=== PATIENT | male | born 1950 | race Caucasian/White ===

== ENCOUNTER 2017-05-07 08:00 | Outpatient (CLI) | payer MEDICARE, OTHER | END 2017-05-07 08:01 | disposition home or self-care (01) | LOC: LAB.S 08:00 | PROVIDERS: ATTEND Family Medicine | DX: I82.90 Acute embolism and thrombosis of unspecified vein (principal) | CPT/HCPCS: 85610 ==

== ENCOUNTER 2017-05-17 15:50 | Outpatient (CLI) | payer MEDICARE, OTHER | END 2017-05-17 15:51 | disposition home or self-care (01) | LOC: LAB.F 15:50 | PROVIDERS: ATTEND Family Medicine | DX: I82.90 Acute embolism and thrombosis of unspecified vein (principal) | CPT/HCPCS: 85610 ==

== ENCOUNTER 2017-05-28 09:05 | Outpatient (CLI) | payer MEDICARE, OTHER ==
[2017-05-28 19:28] LABS: ALBUMIN/GLOBULIN RATIO 1.2 (1.0-2.2); BILIRUBIN,TOTAL 1.1 mg/dL (0.2-1.0); BUN - BLOOD UREA NITROGEN 23 mg/dL (6-20); CALCIUM 8.7 mg/dL (8.5-10.3); CARBON DIOXIDE - CO2 30 mmol/L (21-32); CHLORIDE 104 mmol/L (101-111); CHOLESTEROL 188 mg/dL; CREATININE 0.8 mg/dL (0.6-1.2); GFR - MDRD 96 (>89); GLUCOSE 93 mg/dL (70-100); HDL CHOLESTEROL 63 mg/dL; LDL/HDL RATIO 1.8 (<3.6); POTASSIUM 4.5 mmol/L (3.5-5.0); SODIUM 139 mmol/L (135-145); TOTAL PROTEIN 7.5 g/dL (6.7-8.2); TRIGLYCERIDES 69 mg/dL; VLDL CHOLESTEROL 14 mg/dL
== END 2017-05-28 09:06 ==
LOC: LAB.S 09:05
PROVIDERS: ATTEND Family Medicine
DX: Z12.5 Encounter for screening for malignant neoplasm of prostate (principal); I82.90 Acute embolism and thrombosis of unspecified vein; I25.10 Atherosclerotic heart disease of native coronary artery without angina pectoris; E03.9 Hypothyroidism, unspecified; R03.0 Elevated blood-pressure reading, without diagnosis of hypertension; E29.1 Testicular hypofunction
CPT/HCPCS: 36415; 80053; 80061; 82627; 84403; 84443; 85610; G0103; 84153

== ENCOUNTER → 2017-06-11 | Outpatient (CLI) | payer MEDICARE, OTHER | LOC: LAB.S 08:00 | PROVIDERS: ATTEND Family Medicine | DX: I82.90 Acute embolism and thrombosis of unspecified vein (principal) | CPT/HCPCS: 85610 ==

== ENCOUNTER 2017-06-25 08:00 | Outpatient (CLI) | payer MEDICARE, OTHER | END 2017-06-25 08:01 | disposition home or self-care (01) | LOC: LAB.S 08:00 | PROVIDERS: ATTEND Family Medicine | DX: I82.90 Acute embolism and thrombosis of unspecified vein (principal) | CPT/HCPCS: 85610 ==

== ENCOUNTER 2017-07-09 10:41 | Outpatient (CLI) | payer MEDICARE, OTHER | END 2017-07-09 10:42 | disposition home or self-care (01) | LOC: LAB.S 10:41 | PROVIDERS: ATTEND Family Medicine | DX: I82.90 Acute embolism and thrombosis of unspecified vein (principal) | CPT/HCPCS: 85610 ==

== ENCOUNTER 2017-08-10 11:24 | Outpatient (CLI) | payer MEDICARE, OTHER | END 2017-08-10 11:25 | disposition home or self-care (01) | LOC: LAB.F 11:24 | PROVIDERS: ATTEND Family Medicine | DX: I82.90 Acute embolism and thrombosis of unspecified vein (principal) | CPT/HCPCS: 85610 ==

== ENCOUNTER 2017-11-22 09:28 | Outpatient (CLI) | payer MEDICARE, OTHER | END 2017-11-22 09:29 | disposition home or self-care (01) | LOC: LAB.F 09:28 | PROVIDERS: ATTEND Family Medicine | DX: I82.90 Acute embolism and thrombosis of unspecified vein (principal) | CPT/HCPCS: 85610 ==

== ENCOUNTER 2018-01-21 08:00 | Outpatient (CLI) | payer MEDICARE, OTHER | END 2018-01-21 08:01 | disposition home or self-care (01) | LOC: LAB.S 08:00 | PROVIDERS: ATTEND Family Medicine | DX: I82.90 Acute embolism and thrombosis of unspecified vein (principal) | CPT/HCPCS: 85610 ==

== ENCOUNTER 2018-02-11 08:00 | Outpatient (CLI) | payer MEDICARE, OTHER | END 2018-02-11 08:01 | LOC: LAB.S 08:00 | PROVIDERS: ATTEND Family Medicine | DX: I82.90 Acute embolism and thrombosis of unspecified vein (principal) | CPT/HCPCS: 85610 ==

== ENCOUNTER 2018-03-04 08:00 | Outpatient (CLI) | payer MEDICARE, OTHER | END 2018-03-04 08:01 | disposition home or self-care (01) | LOC: LAB.S 08:00 | PROVIDERS: ATTEND Family Medicine | DX: Z12.5 Encounter for screening for malignant neoplasm of prostate (principal); Z95.2 Presence of prosthetic heart valve | CPT/HCPCS: 36415; 85610; G0103; 84153 ==

== ENCOUNTER 2018-04-12 15:27 | Outpatient (CLI) | payer MEDICARE, OTHER | END 2018-04-12 15:28 | disposition home or self-care (01) | LOC: LAB.F 15:27 | PROVIDERS: ATTEND Family Medicine | DX: I82.90 Acute embolism and thrombosis of unspecified vein (principal) | CPT/HCPCS: 85610 ==

== ENCOUNTER 2018-05-17 08:00 | Outpatient (CLI) | payer MEDICARE, OTHER | END 2018-05-17 08:01 | disposition home or self-care (01) | LOC: LAB.F 08:00 | PROVIDERS: ATTEND Family Medicine | DX: I82.90 Acute embolism and thrombosis of unspecified vein (principal) | CPT/HCPCS: 85610 ==

== ENCOUNTER 2018-06-24 16:02 | Outpatient (CLI) | payer MEDICARE, OTHER | END 2018-06-24 16:03 | disposition home or self-care (01) | LOC: LAB.S 16:02 | PROVIDERS: ATTEND Family Medicine | DX: I82.90 Acute embolism and thrombosis of unspecified vein (principal) | CPT/HCPCS: 85610 ==

== ENCOUNTER 2018-07-29 14:03 | Outpatient (CLI) | payer MEDICARE, OTHER | END 2018-07-29 14:04 | disposition home or self-care (01) | LOC: LAB.F 14:03 | PROVIDERS: ATTEND Nurse Practitioner Family | DX: I82.90 Acute embolism and thrombosis of unspecified vein (principal) | CPT/HCPCS: 85610 ==

== ENCOUNTER 2018-08-19 13:38 | Outpatient (CLI) | payer MEDICARE, OTHER | END 2018-08-19 13:39 | disposition home or self-care (01) | LOC: LAB.F 13:38 | PROVIDERS: ATTEND Nurse Practitioner Family | DX: I82.90 Acute embolism and thrombosis of unspecified vein (principal) | CPT/HCPCS: 85610 ==

== ENCOUNTER 2018-09-23 08:00 | Outpatient (CLI) | payer MEDICARE, OTHER | END 2018-09-23 08:01 | disposition home or self-care (01) | LOC: LAB.S 08:00 | PROVIDERS: ATTEND Nurse Practitioner Family | DX: I82.90 Acute embolism and thrombosis of unspecified vein (principal) | CPT/HCPCS: 85610 ==

== ENCOUNTER 2018-09-30 08:00 | Outpatient (CLI) | payer MEDICARE, OTHER | END 2018-09-30 23:59 | disposition home or self-care (01) | LOC: LAB.S 08:00 | PROVIDERS: ATTEND Nurse Practitioner Family | DX: I82.90 Acute embolism and thrombosis of unspecified vein (principal) | CPT/HCPCS: 85610 ==

== ENCOUNTER 2018-10-14 12:17 | Outpatient (CLI) | payer MEDICARE, OTHER | END 2018-10-14 23:59 | disposition home or self-care (01) | LOC: LAB.S 12:17 | PROVIDERS: ATTEND Nurse Practitioner Family | DX: I82.90 Acute embolism and thrombosis of unspecified vein (principal) | CPT/HCPCS: 85610 ==

== ENCOUNTER 2018-11-29 09:05 | Outpatient (CLI) | payer MEDICARE, OTHER | END 2018-11-29 09:06 | disposition home or self-care (01) | LOC: LAB.F 09:05 | PROVIDERS: ATTEND Nurse Practitioner Family | DX: I82.90 Acute embolism and thrombosis of unspecified vein (principal) | CPT/HCPCS: 85610 ==

== ENCOUNTER 2019-02-21 14:33 | Outpatient (CLI) | payer MEDICARE, OTHER | END 2019-02-21 14:34 | disposition home or self-care (01) | LOC: LAB.F 14:33 | PROVIDERS: ATTEND Nurse Practitioner Family | DX: I82.90 Acute embolism and thrombosis of unspecified vein (principal) | CPT/HCPCS: 85610 ==

== ENCOUNTER 2019-02-24 14:22 | Outpatient (CLI) | payer MEDICARE, OTHER | END 2019-02-24 14:23 | disposition home or self-care (01) | LOC: LAB.F 14:22 | PROVIDERS: ATTEND Nurse Practitioner Family | DX: I82.90 Acute embolism and thrombosis of unspecified vein (principal) | CPT/HCPCS: 85610 ==

== ENCOUNTER 2019-04-04 15:21 | Outpatient (CLI) | payer MEDICARE, OTHER | END 2019-04-04 15:22 | disposition home or self-care (01) | LOC: LAB.F 15:21 | PROVIDERS: ATTEND Physician Assistant Medical | DX: Z79.01 Long term (current) use of anticoagulants (principal) | CPT/HCPCS: 85610 ==

== ENCOUNTER 2019-04-07 12:39 | Outpatient (CLI) | payer MEDICARE, OTHER | END 2019-04-07 12:40 | disposition home or self-care (01) | LOC: LAB.F 12:39 | PROVIDERS: ATTEND Physician Assistant Medical | DX: Z79.01 Long term (current) use of anticoagulants (principal) | CPT/HCPCS: 85610 ==

== ENCOUNTER 2019-04-18 14:56 | Outpatient (CLI) | payer MEDICARE, OTHER | END 2019-04-18 14:57 | disposition home or self-care (01) | LOC: LAB.F 14:56 | PROVIDERS: ATTEND Physician Assistant Medical | DX: Z51.81 Encounter for therapeutic drug level monitoring (principal); Z79.01 Long term (current) use of anticoagulants | CPT/HCPCS: 85610 ==

== ENCOUNTER 2019-04-28 14:59 | Outpatient (CLI) | payer MEDICARE, OTHER | END 2019-04-28 15:00 | disposition home or self-care (01) | LOC: LAB.S 14:59 | PROVIDERS: ATTEND Physician Assistant Medical | DX: Z51.81 Encounter for therapeutic drug level monitoring (principal); Z79.01 Long term (current) use of anticoagulants | CPT/HCPCS: 85610 ==

== ENCOUNTER 2019-05-06 07:41 | Outpatient (CLI) | payer MEDICARE, OTHER | END 2019-05-06 07:42 | disposition home or self-care (01) | LOC: LAB.S 07:41 | PROVIDERS: ATTEND Physician Assistant Medical | DX: Z79.01 Long term (current) use of anticoagulants (principal) | CPT/HCPCS: 85610 ==

== ENCOUNTER 2019-05-13 15:41 | Outpatient (CLI) | payer MEDICARE, OTHER | END 2019-05-13 15:42 | disposition home or self-care (01) | LOC: LAB.S 15:41 | PROVIDERS: ATTEND Physician Assistant Medical | DX: Z79.01 Long term (current) use of anticoagulants (principal) | CPT/HCPCS: 85610 ==

== ENCOUNTER 2019-05-26 12:51 | Outpatient (CLI) | payer MEDICARE, OTHER | END 2019-05-26 12:52 | disposition home or self-care (01) | LOC: LAB.S 12:51 | PROVIDERS: ATTEND Physician Assistant Medical | DX: Z79.01 Long term (current) use of anticoagulants (principal) | CPT/HCPCS: 85610 ==

== ENCOUNTER 2019-06-02 | Outpatient (CLI) | payer MEDICARE, OTHER | END 2019-06-02 12:58 | disposition home or self-care (01) | DX: Z79.01 Long term (current) use of anticoagulants (principal) ==

== ENCOUNTER 2019-06-09 15:30 | Outpatient (CLI) | payer MEDICARE, OTHER | END 2019-06-09 15:31 | disposition home or self-care (01) | LOC: LAB.S 15:30 | PROVIDERS: ATTEND Physician Assistant Medical | DX: Z79.01 Long term (current) use of anticoagulants (principal) | CPT/HCPCS: 85610 ==

== ENCOUNTER 2019-06-16 14:52 | Outpatient (CLI) | payer MEDICARE, OTHER ==
[2019-06-16 17:17] LABS: PARTIAL THROMBOPLASTIN TIME 40.3 secs (24.9-33.3)
[2019-06-16 17:28] LABS: INR 2.1 (0.8-1.2)
== END 2019-06-16 14:53 | disposition home or self-care (01) ==
LOC: LAB.S 14:52
PROVIDERS: ATTEND Family Medicine
DX: Z79.01 Long term (current) use of anticoagulants (principal)
CPT/HCPCS: 36415; 85610; 85730

== ENCOUNTER 2019-06-19 08:15 | Outpatient (CLI) | payer MEDICARE, OTHER ==
--- NOTE | 2019-06-19 13:51 | Ultrasound Report ---
Reason: RUQ DISCOMFORT, ELEVATED BILIRUBIN, GGT Procedure Date: 06/19/2019 Accession Number: [id number] / [id number] Procedure: US - Abdomen Complete CPT Code: FULL RESULT: EXAM: ABDOMEN ULTRASOUND EXAM DATE: 06/19/2019 11:43 AM. CLINICAL HISTORY: Right upper quadrant pain, elevated bilirubin and GGT. COMPARISON: None. TECHNIQUE: Real-time scanning was performed with static images obtained. FINDINGS: Liver: Normal in overall size and echotexture. There is suboptimal visualization of the left lobe secondary to overlying bowel gas. 2 small right hepatic cysts measure 0.9 cm each. No solid masses. The right lobe measures 15.8 cm. Main portal vein flow: Hepatopetal. Gallbladder: The gallbladder is not well visualized as it appears to be packed with shadowing stones including within the gallbladder neck. The wall appears mildly thickened as seen on image 147 measuring 3.5 mm. Negative sonographic Salinas sign. Biliary System: Common bile duct measures 5 mm. Hyperechogenic material within the common bile duct may represent gas bubbles. No definite obstructing stone or dilatation. Pancreas: Largely obscured by bowel gas. No definite abnormality. Kidneys: Right: 11.4 cm longitudinally. Normal. No contour-deforming mass, stones, or hydronephrosis. Left: 11.9 cm longitudinally. Normal. No contour-deforming mass, stones, or hydronephrosis. Spleen: 11.9 cm. Normal in size and echotexture. Aorta and Inferior Vena Cava: Unremarkable. Other: None. IMPRESSION: 1. Gallbladder appears packed with stones with mildly thickened wall, likely chronic cholecystitis. No sonographic Salinas sign to suggest acute cholecystitis. However if there is elevated clinical concern, a nuclear medicine DISIDA scan may be considered. 2. Probable gas bubbles within the common bile duct of uncertain etiology. Query any history of ampullectomy. RADIA
== END 2019-06-19 08:16 | disposition home or self-care (01) ==
LOC: DI 08:15
PROVIDERS: ATTEND Family Medicine
DX: R10.11 Right upper quadrant pain (principal); R79.89 Other specified abnormal findings of blood chemistry; K80.20 Calculus of gallbladder without cholecystitis without obstruction
CPT/HCPCS: 76700

== ENCOUNTER 2019-07-01 14:50 | Outpatient (CLI) | payer MEDICARE, OTHER | END 2019-07-01 14:51 | disposition home or self-care (01) | LOC: LAB.S 14:50 | PROVIDERS: ATTEND Physician Assistant Medical | DX: Z79.01 Long term (current) use of anticoagulants (principal) | CPT/HCPCS: 85610 ==

== ENCOUNTER 2019-07-07 11:52 | Outpatient (CLI) | payer MEDICARE, OTHER | END 2019-07-07 11:53 | disposition home or self-care (01) | LOC: LAB.S 11:52 | PROVIDERS: ATTEND Physician Assistant Medical | DX: Z79.01 Long term (current) use of anticoagulants (principal) | CPT/HCPCS: 85610 ==

== ENCOUNTER 2019-07-14 14:50 | Outpatient (CLI) | payer MEDICARE, OTHER | END 2019-07-14 14:51 | disposition home or self-care (01) | LOC: LAB.S 14:50 | PROVIDERS: ATTEND Physician Assistant Medical | DX: Z79.01 Long term (current) use of anticoagulants (principal) | CPT/HCPCS: 85610 ==

== ENCOUNTER 2019-07-21 14:16 | Outpatient (CLI) | payer MEDICARE, OTHER | END 2019-07-21 14:17 | disposition home or self-care (01) | LOC: LAB.S 14:16 | PROVIDERS: ATTEND Physician Assistant Medical | DX: Z51.81 Encounter for therapeutic drug level monitoring (principal); Z79.01 Long term (current) use of anticoagulants | CPT/HCPCS: 85610 ==

== ENCOUNTER 2019-08-05 15:44 | Outpatient (CLI) | payer MEDICARE, OTHER | END 2019-08-05 15:45 | disposition home or self-care (01) | LOC: LAB.S 15:44 | PROVIDERS: ATTEND Physician Assistant Medical | DX: Z79.01 Long term (current) use of anticoagulants (principal) | CPT/HCPCS: 85610 ==

== ENCOUNTER 2019-08-13 19:04 | Emergency (ER) | payer MEDICARE, OTHER ==
[2019-08-13 19:30] LABS: BASOPHILS % (AUTO) 0.2 %; EOSINOPHILS # (AUTO) 0.2 10^3/uL (0.0-0.7); EOSINOPHILS % (AUTO) 2.4 %; HGB - HEMOGLOBIN 17.2 g/dL (14.0-18.0); LYMPHOCYTES # (AUTO) 0.3 10^3/uL (1.5-3.5); LYMPHOCYTES % (AUTO) 2.8 %; MEAN CORPUSCULAR HEMOGLOBIN 32.3 pg (27.0-31.0); MEAN CORPUSCULAR HGB CONC 33.9 g/dL (32.0-36.0); MEAN CORPUSCULAR VOLUME 95.1 fL (80.0-94.0); MEAN PLATELET VOLUME 9.4 fL (7.4-11.4); MONOCYTES # (AUTO) 0.7 10^3/uL (0.0-1.0); MONOCYTES % (AUTO) 7.2 %; PLT - PLATELET COUNT 182 10^3/uL (130-450); RED BLOOD COUNT 5.33 10^6/uL (4.70-6.10); RED CELL DISTRIBUTION WIDTH 12.8 % (12.0-15.0); WHITE BLOOD COUNT 9.2 x10^3/uL (4.8-10.8)
[2019-08-13 19:42] LABS: GLUCOSE, URINE (UA) NEGATIVE (NEGATIVE); KETONES,URINE (UA) >=80 mg/dL (NEGATIVE); LEUKOCYTE ESTERASE, URINE TRACE (NEGATIVE); NITRITE,URINE NEGATIVE (NEGATIVE); OCCULT BLOOD,URINE MODERATE (NEGATIVE); PH,URINE 5.5 PH (5.0-7.5); PROTEIN,URINE 100 mg/dL (NEGATIVE); UROBILINOGEN,URINE 1 (NORMAL) E.U./dL (NORMAL)
[2019-08-13] MEDS ORDERED: cefTRIAXone 1 GM in SODIUM CHLORIDE 0.9% MINIBAG 100 ML IV STA (19:43)
--- NOTE | 2019-08-13 19:45 | ED Physician Documentation ---
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 Few months ago he had an incidentally noted high bilirubin and had an ultrasound showing lots of stones and potential chronic cholecystitis. Over the last 3 days he is developed some epigastric pain, jaundice, and fevers and chills.) Review of Systems Ten Systems: 10 systems reviewed and negative Constitutional: reports: Fever, Chills Nose: denies: Rhinorrhea / runny nose, Congestion Cardiac: denies: Chest pain / pressure, Palpitations Respiratory: denies: Dyspnea, Cough GI: reports: Abdominal Pain, Nausea. denies: Vomiting, Constipation, Diarrhea PD PAST MEDICAL HISTORY - Past Medical History Past Medical History: Yes Endocrine/Autoimmune: HyPOthyroidism GI: Cholelithiasis - Past Surgical History Past Surgical History: Yes Cardiovascular: Valve replacement - Present Medications Home Medications: Ambulatory Orders Medication Instructions Recorded Confirmed Levothyroxine Sodium 50 mcg PO DAILY 08/13/19 08/13/19 Testosterone [Androgel] 5 gm TD 08/13/19 Warfarin Sodium 10 mg PO DAILY 08/13/19 08/13/19 Warfarin Sodium 12 mg PO DAILY 08/13/19 08/13/19 - Allergies Allergies/Adverse Reactions: Allergies Allergy/AdvReac Type Severity Reaction Status Date / Time No Known Drug Allergies Allergy Verified 08/13/19 19:35 - Social History Does the pt smoke?: No Smoking Status: Never smoker Does the pt drink ETOH?: No Does the pt have substance abuse?: No - Family History Family history: reports: Non contributory - Immunizations Immunizations are current?: No - POLST Patient has POLST: No PD ED PE NORMAL - Vitals Vital signs reviewed: Yes - General General: Alert and oriented X 3, No acute distress - HEENT HEENT: Other (jaundiced) - Neck Neck: Supple, no meningeal sign, No bony TTP - Cardiac Cardiac: RRR, No murmur - Respiratory Respiratory: No respiratory distress, Clear bilaterally - Abdomen Abdomen: Other (minimal epigastric TTP) - Back Back: No CVA TTP, No spinal TTP - Derm Derm: Normal color, Warm and dry - Extremities Extremities: No edema, No calf tenderness / cord - Neuro Neuro: Alert and oriented X 3, Normal speech Results - Vitals Vitals: Vital Signs - 24 hr 08/13/19 08/13/19 19:09 20:40 Temperature 38.2 C H 37.9 C H Heart Rate 104 H 91 Respiratory 16 16 Rate Blood Pressure 135/72 H 138/71 H O2 Saturation 94 94 Oxygen O2 Source Room air - Labs Labs: Laboratory Tests 08/13/19 08/13/19 08/13/19 19:20 19:22 19:22 WBC 9.2 RBC 5.33 Hgb 17.2 Hct 50.7 MCV 95.1 H MCH 32.3 H MCHC 33.9 RDW 12.8 Plt Count 182 MPV 9.4 Neut # (Auto) 8.0 H Lymph # (Auto) 0.3 L Blaine # (Auto) 0.7 Eos # (Auto) 0.2 Baso # (Auto) 0.0 Absolute Nucleated RBC 0.00 Nucleated RBC % 0.0 PT INR Sodium 134 L Potassium 3.9 Chloride 98 L Carbon Dioxide 24 Anion Gap 12.0 BUN 21 H Creatinine 1.0 Estimated GFR (MDRD) 74 L Glucose 143 H Lactic Acid Calcium 8.7 Total Bilirubin 12.2 H AST 157 H ALT 306 H Alkaline Phosphatase 138 H Total Protein 7.7 Albumin 3.8 Globulin 3.9 Albumin/Globulin Ratio 1.0 Lipase 31 Urine Color DARK YELLOW Urine Clarity CLEAR Urine pH 5.5 Ur Specific Kirby 1.025 Urine Protein 100 H Urine Glucose (UA) NEGATIVE Urine Ketones >=80 H Urine Occult Blood MODERATE H Urine Nitrite NEGATIVE Urine Bilirubin LARGE H Urine Urobilinogen 1 (NORMAL) Ur Leukocyte Esterase TRACE H Urine RBC 0-5 Urine WBC 0-3 Ur Squamous Epith Cells RARE Squamous Urine Bacteria Few Urine Mucus Few Strands Ur Microscopic Review INDICATED Urine Culture Comments INDICATED 08/13/19 08/13/19 19:22 19:22 WBC RBC Hgb Hct MCV MCH MCHC RDW Plt Count MPV Neut # (Auto) Lymph # (Auto) Blaine # (Auto) Eos # (Auto) Baso # (Auto) Absolute Nucleated RBC Nucleated RBC % PT 39.9 H INR 3.8 H Sodium Potassium Chloride Carbon Dioxide Anion Gap BUN Creatinine Estimated GFR (MDRD) Glucose Lactic Acid 0.9 Calcium Total Bilirubin AST ALT Alkaline Phosphatase Total Protein Albumin Globulin Albumin/Globulin Ratio Lipase Urine Color Urine Clarity Urine pH Ur Specific Kirby Urine Protein Urine Glucose (UA) Urine Ketones Urine Occult Blood Urine Nitrite Urine Bilirubin Urine Urobilinogen Ur Leukocyte Esterase Urine RBC Urine WBC Ur Squamous Epith Cells Urine Bacteria Urine Mucus Ur Microscopic Review Urine Culture Comments - Rads (name of study) RUQ sono Radiology: EMP read contemporaneously (Dilated common bile duct to 11 mm without intrahepatic biliary ductal dilatation) PD MEDICAL DECISION MAKING - ED course ED course: 69-year-old gentleman presents with a sending cholangitis. Known history of cholelithiasis. After blood cultures were obtained he was administered Rocephin and subsequently Flagyl after discussion with the excepting physician. He needs transfer to a higher level of care for GI and potentially cardiology consultation since he has had an aortic valve replacement and is anticoagulated. He was accepted by Dr. Nathaniel Sargent to [place] where his aquatic physiotherapist is at 9:15 PM and cobras were completed. Departure - Departure Disposition: 02 Transfer Acute Care Hosp Clinical Impression: Ascending cholangitis Condition: Stable
[2019-08-13 19:47] LABS: BILIRUBIN,URINE LARGE (NEGATIVE); CLARITY,URINE CLEAR (CLEAR); ICTOTEST,URINE POSITIVE
[2019-08-13 19:52] LABS: ALBUMIN 3.8 g/dL (3.2-5.5); BILIRUBIN,TOTAL 12.2 mg/dL (0.2-1.0); CALCIUM 8.7 mg/dL (8.5-10.3); TOTAL PROTEIN 7.7 g/dL (6.7-8.2)
[2019-08-13 19:57] LABS: BACTERIA,URINE Few /HPF (None Seen); MUCUS,URINE Few Strands; RBC,URINE 0-5 /HPF (0-5); SQUAMOUS EPITHELIAL CELL,UR RARE Squamous (<= Few)
[2019-08-13 20:59] LABS: INR 3.8 (0.8-1.2); PT - PROTHROMBIN TIME 39.9 secs (9.9-12.6)
[2019-08-13] MEDS ORDERED: DEXTROSE 5%-LACTATED RINGERS 1,000 ML IV SCH (21:00)
--- NOTE | 2019-08-13 21:12 | Ultrasound Report ---
Reason: Ascending cholangitis Procedure Date: 08/13/2019 Accession Number: [id number] / [id number] Procedure: US - Abdomen Limited CPT Code: FULL RESULT: EXAM: ABDOMEN ULTRASOUND LIMITED, RUQ EXAM DATE: 08/13/2019 08:50 PM. CLINICAL HISTORY: Ascending cholangitis. COMPARISON: ABDOMEN COMPLETE 06/19/2019 8:36 AM. TECHNIQUE: Real-time scanning was performed with static images obtained. FINDINGS: Liver: Mildly enlarged and heterogeneous. 18.8 cm. Main portal vein flow: Hepatopetal. Gallbladder: Not well seen. Biliary System: CBD measures 10-11 mm. Mildly dilated common bile duct. No common duct stone identified. No intrahepatic bile duct dilation. Other: The right kidney is unremarkable without hydronephrosis. IMPRESSION: 1. Mild to moderate dilation of the common bile duct, increased from before. No common duct stone visualized. Gallbladder not well seen. 2. Mild hepatocellular disease. RADIA
[2019-08-13] MEDS ORDERED: metroNIDAZOLE 500 MG/100 ML 500 MG/100 ML BAG IV ONE (21:14)
[2019-08-13] MEDS ORDERED: ACETAMINOPHEN 500 MG TABLET PO STA (22:23)
[2019-08-13 22:54] VITALS: BP 122/64
== END 2019-08-13 23:14 | disposition short-term general hospital (02) ==
LOC: ED 19:04
DX: K83.09 Other cholangitis (principal); K80.20 Calculus of gallbladder without cholecystitis without obstruction; Z79.01 Long term (current) use of anticoagulants; Z95.2 Presence of prosthetic heart valve
CPT/HCPCS: 36415; 76705; 80053; 81001; 83605; 83690; 85025; 85610; 87040; 87077; 87086; 87181; 96365; 96367; 99283; 99285; A9270; 81003

== ENCOUNTER 2019-08-18 07:16 | Outpatient (CLI) | payer MEDICARE, OTHER | END 2019-08-18 07:17 | disposition home or self-care (01) | LOC: LAB.S 07:16 | PROVIDERS: ATTEND Physician Assistant Medical | DX: Z79.01 Long term (current) use of anticoagulants (principal) | CPT/HCPCS: 85610 ==

== ENCOUNTER 2019-08-19 08:13 | Outpatient (CLI) | payer MEDICARE, OTHER | END 2019-08-19 08:14 | disposition home or self-care (01) | LOC: LAB.S 08:13 | PROVIDERS: ATTEND Physician Assistant Medical | DX: Z79.01 Long term (current) use of anticoagulants (principal) | CPT/HCPCS: 85610 ==

== ENCOUNTER 2019-08-25 14:21 | Outpatient (CLI) | payer MEDICARE, OTHER | END 2019-08-25 14:22 | disposition home or self-care (01) | LOC: LAB.S 14:21 | PROVIDERS: ATTEND Physician Assistant Medical | DX: Z79.01 Long term (current) use of anticoagulants (principal) | CPT/HCPCS: 85610 ==

== ENCOUNTER 2019-08-29 13:53 | Outpatient (CLI) | payer MEDICARE, OTHER | END 2019-08-29 13:54 | disposition home or self-care (01) | LOC: LAB.S 13:53 | PROVIDERS: ATTEND Family Medicine | DX: Z79.01 Long term (current) use of anticoagulants (principal); I06.9 Rheumatic aortic valve disease, unspecified | CPT/HCPCS: 85610 ==

== ENCOUNTER 2019-09-11 15:11 | Outpatient (CLI) | payer MEDICARE, OTHER | END 2019-09-11 15:12 | disposition home or self-care (01) | LOC: LAB.S 15:11 | PROVIDERS: ATTEND Family Medicine | DX: Z79.01 Long term (current) use of anticoagulants (principal); I06.9 Rheumatic aortic valve disease, unspecified | CPT/HCPCS: 85610 ==

== ENCOUNTER 2019-09-16 14:55 | Outpatient (CLI) | payer MEDICARE, OTHER | END 2019-09-16 14:56 | disposition home or self-care (01) | LOC: LAB.S 14:55 | PROVIDERS: ATTEND Family Medicine | DX: Z79.01 Long term (current) use of anticoagulants (principal); I06.9 Rheumatic aortic valve disease, unspecified | CPT/HCPCS: 85610 ==

== ENCOUNTER 2019-09-19 11:20 | Outpatient (CLI) | payer MEDICARE, OTHER | END 2019-09-19 11:21 | disposition home or self-care (01) | LOC: LAB.S 11:20 | PROVIDERS: ATTEND Family Medicine | DX: Z79.01 Long term (current) use of anticoagulants (principal); I06.9 Rheumatic aortic valve disease, unspecified | CPT/HCPCS: 85610 ==

== ENCOUNTER 2019-09-22 10:22 | Outpatient (CLI) | payer MEDICARE, OTHER | END 2019-09-22 10:23 | disposition home or self-care (01) | LOC: LAB.S 10:22 | PROVIDERS: ATTEND Family Medicine | DX: Z79.01 Long term (current) use of anticoagulants (principal); I06.9 Rheumatic aortic valve disease, unspecified | CPT/HCPCS: 85610 ==

== ENCOUNTER 2019-09-26 12:01 | Outpatient (CLI) | payer MEDICARE, OTHER | END 2019-09-26 12:02 | disposition home or self-care (01) | LOC: LAB.S 12:01 | PROVIDERS: ATTEND Family Medicine | DX: Z79.01 Long term (current) use of anticoagulants (principal); I06.9 Rheumatic aortic valve disease, unspecified | CPT/HCPCS: 85610 ==

== ENCOUNTER 2019-09-29 11:25 | Outpatient (CLI) | payer MEDICARE, OTHER | END 2019-09-29 11:26 | disposition home or self-care (01) | LOC: LAB.S 11:25 | PROVIDERS: ATTEND Family Medicine | DX: Z79.01 Long term (current) use of anticoagulants (principal); I06.9 Rheumatic aortic valve disease, unspecified | CPT/HCPCS: 85610 ==

== ENCOUNTER 2019-10-03 12:44 | Outpatient (CLI) | payer MEDICARE, OTHER | END 2019-10-03 23:59 | disposition home or self-care (01) | LOC: LAB.S 12:44 | PROVIDERS: ATTEND Family Medicine | DX: Z79.01 Long term (current) use of anticoagulants (principal); I06.9 Rheumatic aortic valve disease, unspecified | CPT/HCPCS: 85610 ==

== ENCOUNTER 2019-10-10 11:14 | Outpatient (CLI) | payer MEDICARE, OTHER ==
[2019-10-10 17:24] LABS: BASOPHILS % (AUTO) 0.2 %; EOSINOPHILS % (AUTO) 0.7 %; HGB - HEMOGLOBIN 16.8 g/dL (14.0-18.0); LYMPHOCYTES # (AUTO) 0.8 10^3/uL (1.5-3.5); LYMPHOCYTES % (AUTO) 18.3 %; MEAN CORPUSCULAR HEMOGLOBIN 31.5 pg (27.0-31.0); MEAN CORPUSCULAR HGB CONC 32.7 g/dL (32.0-36.0); MEAN CORPUSCULAR VOLUME 96.1 fL (80.0-94.0); MEAN PLATELET VOLUME 10.1 fL (7.4-11.4); MONOCYTES # (AUTO) 0.5 10^3/uL (0.0-1.0); MONOCYTES % (AUTO) 10.4 %; NEUTROPHILS % (AUTO) 70.2 %; PLT - PLATELET COUNT 254 10^3/uL (130-450); RED BLOOD COUNT 5.34 10^6/uL (4.70-6.10); RED CELL DISTRIBUTION WIDTH 12.2 % (12.0-15.0); WHITE BLOOD COUNT 4.3 x10^3/uL (4.8-10.8)
[2019-10-10 17:39] LABS: ALBUMIN 4.2 g/dL (3.2-5.5); ALBUMIN/GLOBULIN RATIO 1.3 (1.0-2.2); TOTAL PROTEIN 7.4 g/dL (6.7-8.2)
[2019-10-10 17:55] LABS: THYROID STIMULATING HORMONE 3.05 uIU/mL (0.34-5.60)
[2019-10-10 17:59] LABS: FREE T4 (FREE THYROXINE) 0.83 ng/dL (0.58-1.64)
[2019-10-10 18:03] LABS: TOTAL T3 1.12 ng/mL (0.87-1.78)
[2019-10-10 18:05] LABS: HB2 TOTAL 17.4 g/dL; HEMOGLOBIN A1C 0.64 g/dL; HEMOGLOBIN A1C % 5.5 % (4.6-6.2)
== END 2019-10-10 11:15 | disposition home or self-care (01) ==
LOC: LAB.S 11:14
PROVIDERS: ATTEND Family Medicine
DX: Z79.01 Long term (current) use of anticoagulants (principal); I06.9 Rheumatic aortic valve disease, unspecified; E55.9 Vitamin D deficiency, unspecified; N52.9 Male erectile dysfunction, unspecified; R53.83 Other fatigue; E03.9 Hypothyroidism, unspecified; R73.09 Other abnormal glucose; E29.1 Testicular hypofunction; R94.5 Abnormal results of liver function studies
CPT/HCPCS: 36415; 80053; 81599; 82306; 82626; 83036; 84402; 84403; 84439; 84443; 84480; 84481; 85025; 85610

== ENCOUNTER 2019-10-14 10:29 | Outpatient (CLI) | payer MEDICARE, OTHER | END 2019-10-14 10:30 | disposition home or self-care (01) | LOC: LAB.S 10:29 | PROVIDERS: ATTEND Family Medicine | DX: Z79.01 Long term (current) use of anticoagulants (principal); I06.9 Rheumatic aortic valve disease, unspecified | CPT/HCPCS: 85610 ==

== ENCOUNTER 2019-12-04 14:01 | Outpatient (CLI) | payer MEDICARE, OTHER | END 2019-12-04 14:02 | disposition home or self-care (01) | LOC: LAB.S 14:01 | PROVIDERS: ATTEND Family Medicine | DX: I06.9 Rheumatic aortic valve disease, unspecified (principal); Z79.01 Long term (current) use of anticoagulants | CPT/HCPCS: 85610 ==

== ENCOUNTER 2019-12-08 11:50 | Outpatient (CLI) | payer MEDICARE, OTHER | END 2019-12-08 11:51 | disposition home or self-care (01) | LOC: LAB.S 11:50 | PROVIDERS: ATTEND Family Medicine | DX: Z79.01 Long term (current) use of anticoagulants (principal); I06.9 Rheumatic aortic valve disease, unspecified | CPT/HCPCS: 85610 ==

== ENCOUNTER 2020-11-16 08:00 | Outpatient (CLI) | payer MEDICARE, OTHER | END 2020-11-16 23:59 | disposition home or self-care (01) | LOC: LAB.F 08:00 | PROVIDERS: ATTEND Registered Nurse | DX: Z79.01 Long term (current) use of anticoagulants (principal) ==

== ENCOUNTER 2020-11-23 10:38 | Outpatient (CLI) | payer MEDICARE, OTHER ==
--- NOTE | 2020-11-23 11:40 | XRAY Report ---
PROCEDURE: Knee 3 View BILAT INDICATIONS: B/L KNEE PAIN L>>R + SWELLING TECHNIQUE: 3 views of each knee(s) were acquired. COMPARISON: None. FINDINGS: Bones: No fractures or dislocations. No suspicious bony lesions. Mild tricompartmental periarticul ar osteophyte formation bilaterally. Moderate right and mild left medial compartment narrowing. Soft tissues: No joint effusion. No suspicious soft tissue calcifications. IMPRESSION: 1. Bilateral osteoarthritis with medial compartment narrowing. 2. No acute fracture. No osseous lesion. If symptoms and/or clinical suspicion for pathology continue , further assessment with repeat plain films, or advanced imaging (e.g., CT, MRI, or bone scan) is re commended for further assessment. Reviewed by: Roxana Paul MD on 11/23/2020 11:39 AM PST Approved by: Roxana Paul MD on 11/23/2020 11:39 AM PST Station ID: [id number]
== END 2020-11-23 10:39 | disposition home or self-care (01) ==
LOC: DI.S 10:38
PROVIDERS: ATTEND Family Medicine
DX: M17.0 Bilateral primary osteoarthritis of knee (principal)

== ENCOUNTER 2020-11-30 08:00 | Outpatient (CLI) | payer MEDICARE, OTHER | END 2020-11-30 23:59 | disposition home or self-care (01) | LOC: LAB.F 08:00 | PROVIDERS: ATTEND Registered Nurse | DX: Z79.01 Long term (current) use of anticoagulants (principal) ==

== ENCOUNTER 2022-06-29 08:00 | Outpatient (CLI) | payer MEDICARE, OTHER | END 2022-06-29 23:59 | disposition home or self-care (01) | LOC: LAB.S 08:00 | PROVIDERS: ATTEND Physician Assistant Medical | DX: Z79.01 Long term (current) use of anticoagulants (principal); I82.90 Acute embolism and thrombosis of unspecified vein; Z95.2 Presence of prosthetic heart valve ==

== ENCOUNTER 2022-07-06 12:54 | Outpatient (CLI) | payer MEDICARE, OTHER ==
[2022-07-06 15:35] LABS: BASOPHILS % (AUTO) 0.2 %; EOSINOPHILS % (AUTO) 0.6 %; HCT - HEMATOCRIT 49.3 % (42.0-52.0); LYMPHOCYTES # (AUTO) 0.9 10^3/uL (1.5-3.5); LYMPHOCYTES % (AUTO) 18.1 %; MEAN CORPUSCULAR HEMOGLOBIN 32.6 pg (27.0-31.0); MEAN CORPUSCULAR HGB CONC 34.5 g/dL (32.0-36.0); MEAN CORPUSCULAR VOLUME 94.4 fL (80.0-94.0); MEAN PLATELET VOLUME 10.1 fL (7.4-11.4); MONOCYTES # (AUTO) 0.5 10^3/uL (0.0-1.0); MONOCYTES % (AUTO) 9.7 %; NEUTROPHILS # (AUTO) 3.6 10^3/uL (1.5-6.6); NEUTROPHILS % (AUTO) 71.2 %; PLT - PLATELET COUNT 240 10^3/uL (130-450); RED BLOOD COUNT 5.22 10^6/uL (4.70-6.10); RED CELL DISTRIBUTION WIDTH 12.2 % (12.0-15.0); WHITE BLOOD COUNT 5.1 x10^3/uL (4.8-10.8)
[2022-07-06 16:43] LABS: THYROID STIMULATING HORMONE 3.88 uIU/mL (0.34-5.60)
[2022-07-06 17:06] LABS: ALBUMIN 3.9 g/dL (3.2-5.5); ALBUMIN/GLOBULIN RATIO 1.1 (1.0-2.2); ALKALINE PHOSPHATASE 72 IU/L (42-121); ALT ALANINE AMINOTRANSFERASE 23 IU/L (10-60); AST ASPARTATE AMINOTRANSFERASE 27 IU/L (10-42); BILIRUBIN,TOTAL 1.5 mg/dL (0.2-1.0); BUN - BLOOD UREA NITROGEN 19 mg/dL (6-20); CARBON DIOXIDE - CO2 28 mmol/L (21-32); CHLORIDE 102 mmol/L (101-111); CHOL/HDL RATIO 3.1 (<5.0); CHOLESTEROL 211 mg/dL; CREATININE 0.9 mg/dL (0.6-1.2); GFR - MDRD 83 (>89); GLUCOSE 119 mg/dL (70-100); HDL CHOLESTEROL 68 mg/dL; LDL CHOLESTEROL,CALCULATED 101 mg/dL; LDL/HDL RATIO 1.5 (<3.6); POTASSIUM 4.5 mmol/L (3.5-5.0); SODIUM 136 mmol/L (135-145); TOTAL PROTEIN 7.4 g/dL (6.7-8.2); TRIGLYCERIDES 212 mg/dL; VLDL CHOLESTEROL 42 mg/dL
== END 2022-07-06 12:55 | disposition home or self-care (01) ==
LOC: LAB.S 12:54
PROVIDERS: ATTEND Registered Nurse
DX: E03.9 Hypothyroidism, unspecified (principal); I82.409 Acute embolism and thrombosis of unspecified deep veins of unspecified lower extremity; Z79.899 Other long term (current) drug therapy; Z13.220 Encounter for screening for lipoid disorders; Z12.5 Encounter for screening for malignant neoplasm of prostate; Z79.01 Long term (current) use of anticoagulants; Z95.2 Presence of prosthetic heart valve
CPT/HCPCS: 36415; 80053; 80061; 84443; 85025; G0103; 83721; 84153; 85598; 85613; 85732

== ENCOUNTER 2022-08-21 09:51 | Outpatient (CLI) | payer MEDICARE, OTHER ==
[2022-08-22 05:09] LABS: HCV AB <0.1 s/co ratio (0.0-0.9)
[2022-08-22 16:08] LABS: SJOGREN'S ANTI-SS-A <0.2 AI (0.0-0.9); SJOGREN'S ANTI-SS-B <0.2 AI (0.0-0.9)
== END 2022-08-21 09:52 | disposition home or self-care (01) ==
LOC: LAB.S 09:51
PROVIDERS: ATTEND Psychiatry & Neurology Neurology
DX: G60.8 Other hereditary and idiopathic neuropathies (principal)
CPT/HCPCS: 36415; 82550; 84207; 86235; 86803

== ENCOUNTER 2022-12-29 08:00 | Outpatient (CLI) | payer MEDICARE | END 2022-12-29 23:59 | disposition home or self-care (01) | LOC: LAB.S 08:00 | PROVIDERS: ATTEND Registered Nurse | DX: Z79.01 Long term (current) use of anticoagulants (principal); I82.409 Acute embolism and thrombosis of unspecified deep veins of unspecified lower extremity; Z95.2 Presence of prosthetic heart valve ==

== ENCOUNTER 2023-02-23 07:23 | Outpatient (CLI) | payer MEDICARE ==
[2023-02-23 14:32] LABS: BASOPHILS % (AUTO) 0.4 %; EOSINOPHILS % (AUTO) 0.7 %; HCT - HEMATOCRIT 53.4 % (42.0-52.0); HGB - HEMOGLOBIN 17.4 g/dL (14.0-18.0); MEAN CORPUSCULAR HGB CONC 32.6 g/dL (32.0-36.0); MEAN CORPUSCULAR VOLUME 98.3 fL (80.0-94.0); MEAN PLATELET VOLUME 9.6 fL (7.4-11.4); MONOCYTES # (AUTO) 0.6 10^3/uL (0.0-1.0); MONOCYTES % (AUTO) 10.4 %; NEUTROPHILS # (AUTO) 3.8 10^3/uL (1.5-6.6); NEUTROPHILS % (AUTO) 69.2 %; PLT - PLATELET COUNT 237 10^3/uL (130-450); RED BLOOD COUNT 5.43 10^6/uL (4.70-6.10); RED CELL DISTRIBUTION WIDTH 13.1 % (12.0-15.0); WHITE BLOOD COUNT 5.5 x10^3/uL (4.8-10.8)
[2023-02-23 14:57] LABS: % IRON SATURATION 45 % (20-50); ALBUMIN 3.7 g/dL (3.2-5.5); ALBUMIN/GLOBULIN RATIO 1.2 (1.0-2.2); ALKALINE PHOSPHATASE 55 IU/L (42-121); ALT ALANINE AMINOTRANSFERASE 20 IU/L (10-60); AST ASPARTATE AMINOTRANSFERASE 19 IU/L (10-42); BILIRUBIN,TOTAL 2.2 mg/dL (0.2-1.0); BUN - BLOOD UREA NITROGEN 21 mg/dL (6-20); CALCIUM 8.7 mg/dL (8.5-10.3); CARBON DIOXIDE - CO2 30 mmol/L (21-32); CHLORIDE 101 mmol/L (101-111); CHOL/HDL RATIO 2.8 (<5.0); CHOLESTEROL 218 mg/dL; CRP HIGH SENSITIVITY 0.5 mg/L; GFR - MDRD 73 (>89); GLUCOSE 97 mg/dL (70-100); HDL CHOLESTEROL 77 mg/dL; IRON 135 ug/dL (45-182); LDL CHOLESTEROL,CALCULATED 127 mg/dL; LDL/HDL RATIO 1.6 (<3.6); POTASSIUM 4.5 mmol/L (3.5-5.0); SODIUM 138 mmol/L (135-145); TOTAL IRON BINDING CAPACITY 302 ug/dL (250-450); TOTAL PROTEIN 6.8 g/dL (6.7-8.2); TRANSFERRIN 216 mg/dL (180-329); TRIGLYCERIDES 70 mg/dL; VLDL CHOLESTEROL 14 mg/dL
[2023-02-23 15:02] LABS: PSA FREE 0.44 ng/mL (0.16-2.81)
[2023-02-23 15:04] LABS: PSA TOTAL 1.379 ng/mL (0.000-2.000)
[2023-02-23 15:06] LABS: THYROID STIMULATING HORMONE 4.8 uIU/mL (0.34-5.60)
[2023-02-23 15:07] LABS: FREE T3 3.17 pg/mL (2.5-3.9)
[2023-02-23 15:08] LABS: FREE T4 (FREE THYROXINE) 1.1 ng/dL (0.58-1.64)
[2023-02-23 15:13] LABS: FERRITIN 57.2 ng/mL (23.9-336.2)
[2023-02-23 21:23] LABS: ESTIMATED AVERAGE GLUCOSE 111 mg/dL (70-100); HEMOGLOBIN A1c% 5.5 % (4.27-6.07)
[2023-02-24 05:12] LABS: VITAMIN D 25-HYDROXY 95.7 ng/mL (30.0-100.0)
== END 2023-02-23 07:24 | disposition home or self-care (01) ==
LOC: LAB.S 07:23
PROVIDERS: ATTEND Family Medicine
DX: E78.5 Hyperlipidemia, unspecified (principal); R73.09 Other abnormal glucose; E03.9 Hypothyroidism, unspecified; I48.91 Unspecified atrial fibrillation; I06.9 Rheumatic aortic valve disease, unspecified; E55.9 Vitamin D deficiency, unspecified; R53.83 Other fatigue; N40.1 Benign prostatic hyperplasia with lower urinary tract symptoms; K29.00 Acute gastritis without bleeding
CPT/HCPCS: 36415; 80053; 80061; 82306; 82626; 82728; 83036; 83090; 83540; 83721; 84153; 84154; 84439; 84443; 84466; 84480; 84481; 84482; 85025; 86141

== ENCOUNTER 2023-09-18 08:00 | Outpatient (CLI) | payer MEDICARE | END 2023-09-18 23:59 | disposition home or self-care (01) | LOC: LAB.F 08:00 | PROVIDERS: ATTEND Registered Nurse | DX: Z79.01 Long term (current) use of anticoagulants (principal); Z95.2 Presence of prosthetic heart valve; I82.409 Acute embolism and thrombosis of unspecified deep veins of unspecified lower extremity ==

== ENCOUNTER 2024-06-11 13:41 | Outpatient (CLI) | payer MEDICARE ==
[2024-06-11 19:55] LABS: BASOPHILS % (AUTO) 0.5 %; EOSINOPHILS # (AUTO) 0.1 10^3/uL (0.0-0.7); EOSINOPHILS % (AUTO) 1.5 %; HCT - HEMATOCRIT 43.4 % (42.0-52.0); HGB - HEMOGLOBIN 14.7 g/dL (14.0-18.0); LYMPHOCYTES # (AUTO) 0.9 10^3/uL (1.5-3.5); LYMPHOCYTES % (AUTO) 23.2 %; MEAN CORPUSCULAR HEMOGLOBIN 33.5 pg (27.0-31.0); MEAN CORPUSCULAR HGB CONC 33.9 g/dL (32.0-36.0); MEAN CORPUSCULAR VOLUME 98.9 fL (80.0-94.0); MEAN PLATELET VOLUME 9.8 fL (7.4-11.4); MONOCYTES # (AUTO) 0.4 10^3/uL (0.0-1.0); MONOCYTES % (AUTO) 10.5 %; NEUTROPHILS # (AUTO) 2.5 10^3/uL (1.5-6.6); NEUTROPHILS % (AUTO) 64.3 %; PLT - PLATELET COUNT 187 10^3/uL (130-450); RED BLOOD COUNT 4.39 10^6/uL (4.70-6.10); RED CELL DISTRIBUTION WIDTH 12.4 % (12.0-15.0); WHITE BLOOD COUNT 3.9 x10^3/uL (4.8-10.8)
[2024-06-11 20:06] LABS: BILIRUBIN,URINE NEGATIVE (NEGATIVE); GLUCOSE, URINE (UA) NEGATIVE (NEGATIVE); KETONES,URINE (UA) TRACE mg/dL (NEGATIVE); LEUKOCYTE ESTERASE, URINE NEGATIVE (NEGATIVE); NITRITE,URINE NEGATIVE (NEGATIVE); OCCULT BLOOD,URINE NEGATIVE (NEGATIVE); PH,URINE 5.5 PH (5.0-7.5); PROTEIN,URINE NEGATIVE (NEGATIVE); UROBILINOGEN,URINE 0.2 (NORMAL) E.U./dL (NORMAL)
[2024-06-11 20:09] LABS: ALBUMIN/GLOBULIN RATIO 1.5 (1.0-2.2); BILIRUBIN,TOTAL 0.9 mg/dL (0.2-1.0); CALCIUM 9.2 mg/dL (8.5-10.3); CREATININE 0.9 mg/dL (0.6-1.3); CRP HIGH SENSITIVITY 0.83 mg/L; POTASSIUM 4.4 mmol/L (3.5-4.5); TOTAL PROTEIN 6.7 g/dL (6.4-8.9)
[2024-06-11 20:24] LABS: BACTERIA,URINE None Seen /HPF (None Seen); CLARITY,URINE CLEAR (CLEAR); RBC,URINE None Seen /HPF (0-5); SQUAMOUS EPITHELIAL CELL,UR RARE Squamous (<= Few); THYROID STIMULATING HORMONE 1.37 uIU/mL (0.34-5.60); WBC,URINE 0-3 /HPF (0-3)
[2024-06-11 20:30] LABS: FERRITIN 35.8 ng/mL (23.9-336.2)
[2024-06-11 23:03] LABS: ESTIMATED AVERAGE GLUCOSE 97 mg/dL (70-100)
[2024-06-13 06:10] LABS: VITAMIN D 25-HYDROXY 69.1 ng/mL (30.0-100.0)
== END 2024-06-11 13:42 | disposition home or self-care (01) ==
LOC: LAB.S 13:41
PROVIDERS: ATTEND Family Medicine
DX: R53.83 Other fatigue (principal); I06.9 Rheumatic aortic valve disease, unspecified; R73.09 Other abnormal glucose; E03.9 Hypothyroidism, unspecified; D64.9 Anemia, unspecified; E78.5 Hyperlipidemia, unspecified; E29.1 Testicular hypofunction; I48.91 Unspecified atrial fibrillation
CPT/HCPCS: 36415; 80053; 81001; 82306; 82626; 82728; 83036; 83090; 84403; 84439; 84443; 84480; 84481; 84482; 85025; 86141; 87086